=== PATIENT | male | born 1955 | race Caucasian/White ===

== ENCOUNTER 2016-12-03 10:33 | Day surgery (SDC) | payer OTHER ==
[~2016-12-03] VITALS: Ht 190.5 cm; Wt 79.4 kg
[~2016-12-03 10:33] MED LIST: PERCOCET 5/31 TABLET PO; ZESTRIL20 MG PO
[2016-12-03] MEDS ORDERED: PERCOCET 5/31 TABLET PO (10:59)
[2016-12-03] MEDS ORDERED: ULTRAM50 MG PO (11:00)
[2016-12-03 11:05] VITALS: BP 141/91
[2016-12-03 17:00] VITALS: BP 140/93
[2016-12-03 17:55] VITALS: BP 137/72
[2016-12-03 18:42] VITALS: BP 143/82
== END 2016-12-03 19:10 | disposition home or self-care (01) ==
LOC: SDC 10:33 → 2SOUTH 15:20 → SDC 15:58 → 2SOUTH 19:10
PROC: 00NY3ZZ Release Lumbar Spinal Cord, Percutaneous Approach (ICD-10-PCS; principal; 2016-12-03)
DX: M48.06 Spinal stenosis, lumbar region (principal); M47.896 Other spondylosis, lumbar region; I10 Essential (primary) hypertension; M50.90 Cervical disc disorder, unspecified, unspecified cervical region
CPT/HCPCS: 72020; 76000; G0378; J0330; J1100; J1170; J1885; J2250; J2405; J3010; J3480